=== PATIENT | female | born 1945 | race Caucasian/White ===

== ENCOUNTER 2017-12-26 15:19 | Emergency (ER) | payer MEDICARE, OTHER ==
[2017-12-26] MEDS ORDERED: LORAZEPAM 2 MG INJ (15:26)
[2017-12-26] MEDS: LORAZEPAM 2 MG INJ IM (15:43)
[2017-12-26] MEDS: SOD CHLORIDE 0.9% 1,000 ML IV (15:43)
[2017-12-26 15:44] LABS: ADD MAN DIFF? NO
[2017-12-26 15:46] LABS: BASOPHIL # 0.1 10^3/ul (0.0-0.1); BASOPHILS % 0.7 % (0.0-2.0); EOSINOPHILS # 0.1 10^3/ul (0.0-0.5); EOSINOPHILS % 0.4 % (0.0-7.0); HEMATOCRIT 48.1 % (37.0-47.0); HEMOGLOBIN 15.4 g/dl (12.0-16.0); LYMPHOCYTES % 28.4 % (15.0-51.0); MEAN CORPUSCULAR HEMOGLOBIN 29.7 pg (29.0-33.0); MEAN CORPUSCULAR VOLUME 92.9 fl (82.0-101.0); MEAN PLATELET VOLUME 10.4 fl (7.4-10.4); MONOCYTE # 1.1 10^3/ul (0.3-0.9); MONOCYTES % 7.9 % (0.0-11.0); NEUTROPHIL # 8.7 10^3/ul (1.6-7.5); NEUTROPHILS % 62.2 % (39.0-77.0); PLATELET COUNT 285 10^3/UL (140-415); RED BLOOD COUNT 5.18 10^6/ul (4.20-5.40); RED CELL DISTRIBUTION WIDTH 13.6 % (11.5-14.5)
[2017-12-26 16:00] LABS: INR 1.05; PROTIME 13.8 Sec (11.9-14.9); PT RATIO 1.1
[2017-12-26 16:01] LABS: PARTIAL THROMBOPLASTIN TIME 28.1 Sec (25.0-35.0)
[2017-12-26 16:07] LABS: ANION GAP 34 (8-16); BLOOD UREA NITROGEN 23 mg/dl (7-20); CALCIUM 9.7 mg/dl (8.4-10.2); CARBON DIOXIDE 12 mmol/L (21-31); CHLORIDE 108 mmol/L (97-110); CREATININE 0.99 mg/dl (0.44-1.00); GLUCOSE 172 mg/dl (70-220); SODIUM 151 mmol/L (135-144)
[2017-12-26 16:15] LABS: PHENYTOIN (DILANTIN) < 3.0 ug/ml (10.0-20.0); POTASSIUM 2.9 mmol/L (3.5-5.1)
[2017-12-26 16:18] LABS: TROPONIN-I < 0.012 ng/ml (0.00-0.12)
[2017-12-26] MEDS ORDERED: FOSPHENYTOIN 100 MG PE/2ML INJ IV (16:30)
[2017-12-26] MEDS: FOSPHENYTOIN (PE) 1,000 MG in SOD CHLORIDE 0.9% 80 ML IV (16:51)
[2017-12-26] MEDS: POTASSIUM CHLORIDE 100 ML IVPB (16:51)
== END 2017-12-26 19:25 | disposition home or self-care (01) ==
LOC: E/R 15:19
DX: E87.6 Hypokalemia (principal); R56.9 Unspecified convulsions; E11.9 Type 2 diabetes mellitus without complications; I10 Essential (primary) hypertension; E03.9 Hypothyroidism, unspecified; R07.9 Chest pain, unspecified; Z79.84 Long term (current) use of oral hypoglycemic drugs
CPT/HCPCS: 36415; 70450; 80048; 80185; 82962; 84484; 85025; 85610; 85730; 93005; 96361; 96365; 96372; 96375; 99285-25